=== PATIENT | male | born 1960 | race Caucasian/White ===

== ENCOUNTER 2016-04-30 23:24 | Observation (INO) | payer BC, MEDICAID ==
[~2016-04-30] VITALS: Ht 167.6 cm; Wt 104.8 kg
[2016-05-01] MEDS ORDERED: ASPIRIN 81 MG CHEW TAB ONE (00:04)
[2016-05-01] MEDS ORDERED: NITROGLYCERIN 2% OINT 1 INCH PKT TOPICAL ONE (00:43)
[2016-05-01] MEDS ORDERED: ENOXAPARIN 100 MG/ML SYR SUBQ ONE (00:43)
[2016-05-01] MEDS ORDERED: SODIUM CHLORIDE 0.9% 250 ML IV ONE (01:25)
[2016-05-01] MEDS ORDERED: AZITHROMYCIN 500 MG VIAL IV ONE (01:25)
[2016-05-01] MEDS ORDERED: CEFTRIAXONE 1 GM VIAL ONE (01:25)
[2016-05-01] MEDS ORDERED: SODIUM CHLORIDE 0.9% 100 ML IV ONE (01:27)
[2016-05-01] MEDS ORDERED: SALINE FLUSH 10 ML FLUSH PRN (01:40)
[2016-05-01] MEDS ORDERED: NITROGLYCERIN 50 MG/250 ML IV PRN (01:40)
[2016-05-01] MEDS ORDERED: NITROGLYCERIN SL 0.4 MG TAB SL PRN ×2 (01:40→10:35)
[2016-05-01] MEDS ORDERED: ACETAMINOPHEN 325 MG TAB PO PRN (01:40)
[2016-05-01] MEDS ORDERED: SODIUM CHLORIDE 0.9% FLUSH BAG 500 ML IV PRN (01:40)
[2016-05-01] MEDS ORDERED: SODIUM CHLORIDE 0.9% 1,000 ML IV SCH (01:40)
[2016-05-01] MEDS ORDERED: ONDANSETRON 4 MG VIAL IV PRN (01:40)
[2016-05-01] MEDS ORDERED: TEMAZEPAM 15 MG CAP PO PRN (01:40)
[2016-05-01] MEDS ORDERED: DOCUSATE SOD 100 MG CAP PO PRN (01:40)
[2016-05-01] MEDS ORDERED: LORAZEPAM 0.5 MG TAB PO PRN (01:40)
[2016-05-01] MEDS ORDERED: MORPHINE 2 MG/ML SYR IV PRN (01:40)
[2016-05-01] MEDS: TRAMADOL 50 MG TAB PO PRN ×3 (04:09→15:23)
[2016-05-01 05:03] VITALS: Ht 167.6 cm; Wt 104.8 kg
[2016-05-01 05:04] VITALS: BP_SYST 120; BP_SYST 122; RESP 16; TEMP 97.3
[2016-05-01] MEDS ORDERED: SALINE FLUSH 10 ML FLUSH SCH (08:00)
[2016-05-01] MEDS ORDERED: ASPIRIN EC 81 MG TAB PO SCH (08:00)
[2016-05-01 08:07] VITALS: BP_SYST 142; RESP 16; TEMP 97.6
[2016-05-01] MEDS ORDERED: ASPIRIN 81 MG CHEW TAB PO SCH (09:35)
[2016-05-01] MEDS ORDERED: CETIRIZINE 10 MG TAB PO SCH (09:35)
[2016-05-01] MEDS ORDERED: DEXTROSE 50% SYRINGE 50 ML IV PRN (09:35)
[2016-05-01] MEDS ORDERED: GLUCAGON 1 MG VIAL IM PRN (09:35)
[2016-05-01] MEDS ORDERED: LEVOFLOXACIN 500 MG TAB PO SCH (09:35)
[2016-05-01] MEDS ORDERED: Carvedilol 6.25 MG TAB PO SCH (09:35)
[2016-05-01 14:03] VITALS: BP_SYST 128; RESP 18; TEMP 97.5
[2016-05-01 15:52] VITALS: BP_SYST 120; RESP 16; TEMP 96
[2016-05-01 17:23] VITALS: BP_SYST 120; RESP 16; TEMP 96
[2016-05-01] MEDS ORDERED: Atorvastatin 40 MG TAB PO SCH (21:00)
[2016-05-01] MEDS ORDERED: LISINOPRIL 20 MG TAB PO SCH (21:00)
== END 2016-05-01 16:20 | disposition home or self-care (01) ==
LOC: ENRESERVDT → ENRESERVTM → ENRESERV → ER 23:24 → ENPENDDIS 23:25 → EMR 23:25 → 4THE 05-01 03:59
PROVIDERS: ADMIT Internal Medicine Cardiovascular Disease; ATTEND Internal Medicine Cardiovascular Disease
DX: R07.2 Precordial pain (principal); I10 Essential (primary) hypertension; E11.9 Type 2 diabetes mellitus without complications; I25.10 Atherosclerotic heart disease of native coronary artery without angina pectoris; E78.5 Hyperlipidemia, unspecified; Z79.82 Long term (current) use of aspirin; Z95.5 Presence of coronary angioplasty implant and graft; Z79.899 Other long term (current) drug therapy; Z87.891 Personal history of nicotine dependence; I25.2 Old myocardial infarction; Z79.4 Long term (current) use of insulin
CPT/HCPCS: 36415; 71010; 80053; 80061; 82550; 82553; 82947; 83735; 84484; 85025; 87040; 93005; 94799; 96365; 96367; 96372